=== PATIENT | male | born 1980 | race African-American/Black ===

== ENCOUNTER 2022-08-07 18:17 | Emergency (ER) | payer MEDICARE, MEDICAID ==
[~2022-08-07] VITALS: Ht 185.4 cm; Wt 136.0 kg
[2022-08-07] MEDS ORDERED: SODIUM CHLORIDE 0.9% 1,000 ML IV ONE (21:00)
[2022-08-07 21:30] LABS: BASOPHILS % 0.2 % (0.0-2.0); EOSINOPHILS % 1.1 % (0.0-5.0); HEMATOCRIT. 38.2 % (42.0-52.0); HEMOGLOBIN. 12.8 g/dL (14.0-18.0); MEAN CORPUSCULAR HEMOGLOBIN 28.4 pg (28.0-32.0); MEAN CORPUSCULAR VOLUME 84.8 fL (80.0-94.0); MEAN PLATELET VOLUME 8.9 fl (7.4-10.4); MONOCYTES % 11.2 % (2.0-8.0); NEUTROPHILS % 70.5 % (40.0-76.0); PLATELET 269 x1000/uL (130-400); RED CELL DISTRIBUTION WIDTH 13.4 % (11.6-14.6)
[2022-08-07 21:31] LABS: CHLORIDE 103 mEq/L (98-107)
[2022-08-07 21:33] LABS: INR 1.2
[2022-08-07 23:08] VITALS: BP 147/88
== END 2022-08-07 23:39 | disposition home or self-care (01) ==
LOC: ER 18:17
DX: R55 Syncope and collapse (principal); I11.0 Hypertensive heart disease with heart failure; I50.9 Heart failure, unspecified; E11.9 Type 2 diabetes mellitus without complications; Z86.73 Personal history of transient ischemic attack (TIA), and cerebral infarction without residual deficits
CPT/HCPCS: 36415; 71045; 80053; 84484; 85025; 85610; 93005; 96360; 99285; J7030

== ENCOUNTER 2022-08-17 11:55 | Inpatient (IN) | payer OTHER, MEDICAID ==
[~2022-08-17] VITALS: Ht 185.4 cm; Wt 151.0 kg
[2022-08-17] MEDS ORDERED: SODIUM CHLORIDE 0.9% 1000ML BAG (SEPSIS BOLUS) IV ONE (13:00)
[2022-08-17] MEDS ORDERED: VANCOMYCIN 1G PREMIX 200 ML IV ONE (13:15)
[2022-08-17] MEDS ORDERED: PIPERACILLIN/TAZ 3.375G PREMIX 50 ML IV ONE (13:15)
[2022-08-17 13:55] LABS: BASOPHILS % 0.4 % (0.0-2.0); EOSINOPHILS % 2.3 % (0.0-5.0); HEMATOCRIT. 45.7 % (42.0-52.0); HEMOGLOBIN. 14.6 g/dL (14.0-18.0); LYMPHOCYTES % 28.2 % (20.0-50.0); MEAN CORPUSCULAR HEMOGLOBIN 27.3 pg (28.0-32.0); MEAN CORPUSCULAR VOLUME 85.4 fL (80.0-94.0); MEAN PLATELET VOLUME 9.1 fl (7.4-10.4); MONOCYTES % 12.6 % (2.0-8.0); NEUTROPHILS % 56.5 % (40.0-76.0); PLATELET 412 x1000/uL (130-400); RED BLOOD CELL COUNT 5.36 mill/uL (4.7-6.1)
[2022-08-17 13:56] LABS: CHLORIDE 106 mEq/L (98-107)
[2022-08-17 15:25] LABS: CLARITY URINE CLEAR (CLEAR); COLOR URINE YELLOW (YELLOW); KETONES URINE NEGATIVE (NEGATIVE); LEUKOCYTE ESTERASE URINE NEGATIVE (NEGATIVE); NITRITE URINE NEGATIVE (NEGATIVE); OCCULT BLOOD URINE NEGATIVE (NEGATIVE); PH URINE 5.5 (4.5-8.0); PROTEIN URINE TRACE (NEGATIVE); SPECIFIC GRAVITY URINE 1.016 (1.005-1.030); UROBILINOGEN URINE 0.2 E.U./dL (0.2-1.0)
[2022-08-17] MEDS ORDERED: PIPERACILLIN/TAZ 3.375G PREMIX 50 ML IV NR (16:00)
[2022-08-18] MEDS ORDERED: HYDROCODONE/ACETAMINOPHEN 5/325MG TABLET PO PRN (01:00)
[2022-08-18] MEDS ORDERED: CEFTRIAXONE 1 G PREMIX 50 ML IV SCH (01:00)
[2022-08-18] MEDS ORDERED: DEXTROSE 50% WATER 50ML SYRINGE IV PRN (01:15)
[2022-08-18 01:25] VITALS: BP 116/74
[2022-08-18] MEDS: CEFTRIAXONE 1,000 MG in DEXTROSE 5% WATER 50 ML IV SCH (02:58)
[2022-08-18] MEDS ORDERED: VANCOMYCIN 1.25GM PMX (XELLIA) 250 ML IV SCH (03:00)
[2022-08-18 04:00] VITALS: BP 119/76
[2022-08-18] MEDS: VANCOMYCIN 1.25GM PMX (XELLIA) 250 ML IV SCH ×3 (06:24→20:55)
[2022-08-18] MEDS: BLOOD SUGAR DIAGNOSTIC STRIP TEST SCH ×4 (06:49→20:55)
[2022-08-18] MEDS: INSULIN LISPRO 100 UNITS/ML SUBCUT SCH ×4 (06:49→20:54)
[2022-08-18 08:00] VITALS: BP 122/64
[2022-08-18] MEDS: ENOXAPARIN 40MG/0.4ML SYR SUBCUT SCH ×2 (09:01→20:52)
[2022-08-18 12:00] VITALS: BP 116/81
[2022-08-18] MEDS ORDERED: RIVA20TA MT (13:53)
[2022-08-18] MEDS ORDERED: SACU1TAB7 MT (13:53)
[2022-08-18] MEDS ORDERED: FURO40TA5 MT (13:53)
[2022-08-18] MEDS ORDERED: POTA10CA42 MT (13:53)
[2022-08-18] MEDS ORDERED: ERGO1250 PO (13:53)
[2022-08-18] MEDS ORDERED: CARV25TA47 MT (13:53)
[2022-08-18] MEDS ORDERED: GLIP10TA10 MT (13:53)
[2022-08-18] MEDS ORDERED: ATOR40TA70 MT (13:53)
[2022-08-18] MEDS ORDERED: ALLO300T2 MT (13:53)
[2022-08-18 16:00] VITALS: BP 133/89
[2022-08-18 18:29] LABS: BASOPHILS % 0.5 % (0.0-2.0); EOSINOPHILS % 3.4 % (0.0-5.0); LYMPHOCYTES % 38.2 % (20.0-50.0); MEAN CORPUSCULAR HEMOGLOBIN 27.4 pg (28.0-32.0); MEAN CORPUSCULAR VOLUME 84.3 fL (80.0-94.0); MEAN PLATELET VOLUME 8.8 fl (7.4-10.4); MONOCYTES % 11.3 % (2.0-8.0); NEUTROPHILS % 46.6 % (40.0-76.0); PLATELET 351 x1000/uL (130-400); RED BLOOD CELL COUNT 4.75 mill/uL (4.7-6.1); RED CELL DISTRIBUTION WIDTH 13.9 % (11.6-14.6)
[2022-08-18 18:57] LABS: CHLORIDE 109 mEq/L (98-107)
[2022-08-18 20:00] VITALS: BP 107/67
[2022-08-18] MEDS ORDERED: NALOXONE HCL 0.4MG/ML VIAL IV PRN (21:45)
[2022-08-19] VITALS: BP 110/72
[2022-08-19 04:00] VITALS: BP 125/83
[2022-08-19] MEDS: CEFTRIAXONE 1,000 MG in DEXTROSE 5% WATER 50 ML IV SCH (04:06)
[2022-08-19 06:10] LABS: BASOPHILS % 0.5 % (0.0-2.0); EOSINOPHILS % 3.5 % (0.0-5.0); HEMATOCRIT. 38.2 % (42.0-52.0); HEMOGLOBIN. 12.5 g/dL (14.0-18.0); LYMPHOCYTES % 39.8 % (20.0-50.0); MEAN CORPUSCULAR HEMOGLOBIN 27.9 pg (28.0-32.0); MEAN CORPUSCULAR VOLUME 85.1 fL (80.0-94.0); MEAN PLATELET VOLUME 8.9 fl (7.4-10.4); MONOCYTES % 11.9 % (2.0-8.0); NEUTROPHILS % 44.3 % (40.0-76.0); PLATELET 354 x1000/uL (130-400); RED BLOOD CELL COUNT 4.48 mill/uL (4.7-6.1)
[2022-08-19] MEDS: VANCOMYCIN 1.25GM PMX (XELLIA) 250 ML IV SCH ×3 (06:26→21:51)
[2022-08-19 06:44] LABS: CHLORIDE 106 mEq/L (98-107)
[2022-08-19 07:01] LABS: HEPATITIS B SURFACE ANTIGEN NEGATIVE
[2022-08-19] MEDS: BLOOD SUGAR DIAGNOSTIC STRIP TEST SCH ×4 (07:14→21:00)
[2022-08-19] MEDS: INSULIN LISPRO 100 UNITS/ML SUBCUT SCH ×4 (07:50→22:04)
[2022-08-19 08:00] VITALS: BP 153/93
[2022-08-19 08:09] LABS: VANCOMYCIN TROUGH 17.8 ug/mL (5.0-10.0)
[2022-08-19] MEDS: ENOXAPARIN 40MG/0.4ML SYR SUBCUT SCH ×2 (10:32→21:58)
[2022-08-19 12:00] VITALS: BP 132/83
[2022-08-19] MEDS: PIPERACILLIN/TAZOBACTAM 3.375 G in DEXTROSE 5% WATER 50 ML IV SCH ×2 (13:00→21:58)
[2022-08-19] MEDS ORDERED: PIPERACILLIN/TAZOBACTAM 3.375 G in DEXTROSE 5% WATER 50 ML IV SCH (14:00)
[2022-08-19] MEDS ORDERED: LIDOCAINE HCL 1% 10 MG/ML 10ML VIAL ONE (15:13)
[2022-08-19] MEDS ORDERED: BUPIVACAINE HCL/PF 0.5% (5MG/ML) 10ML ONE (15:14)
[2022-08-19 16:00] VITALS: BP 140/92
[2022-08-19 16:00] LABS: *AMPHETAMINES SCREEN URINE NEGATIVE (NEGATIVE); *BARBITURATES SCREEN URINE NEGATIVE (NEGATIVE); *BENZODIAZEPINES SCREEN URINE NEGATIVE (NEGATIVE); *COCAINE SCREEN URINE NEGATIVE (NEGATIVE); CANNABINOID URINE SCREEN NEGATIVE (NEGATIVE); METHADONE URINE SCREEN NEGATIVE (NEGATIVE); OPIATES URINE SCREEN NEGATIVE (NEGATIVE); PHENCYCLIDINE URINE SCREEN NEGATIVE (NEGATIVE)
[2022-08-19] MEDS: OXYCODONE HCL/ACETAMINOPHEN 5/325MG TABLET PO PRN (16:14)
[2022-08-19] MEDS ORDERED: NALOXONE HCL 0.4MG/ML VIAL IV PRN (16:15)
[2022-08-19 20:00] VITALS: BP 141/93
[2022-08-20] VITALS: BP 113/67
[2022-08-20 04:00] VITALS: BP 113/67
[2022-08-20] MEDS: VANCOMYCIN 1.25GM PMX (XELLIA) 250 ML IV SCH ×3 (05:09→21:09)
[2022-08-20] MEDS: BLOOD SUGAR DIAGNOSTIC STRIP TEST SCH ×4 (06:48→21:07)
[2022-08-20 08:00] VITALS: BP 121/86
[2022-08-20] MEDS: ENOXAPARIN 40MG/0.4ML SYR SUBCUT SCH ×2 (09:01→21:00)
[2022-08-20] MEDS: PIPERACILLIN/TAZOBACTAM 3.375 G in DEXTROSE 5% WATER 50 ML IV SCH ×3 (09:01→21:08)
[2022-08-20] MEDS: INSULIN LISPRO 100 UNITS/ML SUBCUT SCH ×4 (09:01→21:07)
[2022-08-20 12:00] VITALS: BP 112/74
[2022-08-20] MEDS: OXYCODONE HCL/ACETAMINOPHEN 5/325MG TABLET PO PRN (13:46)
[2022-08-20 16:00] VITALS: BP 118/75
[2022-08-20] MEDS ORDERED: INSULIN GLARGINE 100 UNITS/ML SUBCUT NR (16:30)
[2022-08-20] MEDS: ACETAMINOPHEN 325MG TABLET PO PRN (18:18)
[2022-08-20 20:00] VITALS: BP 131/83
[2022-08-20] MEDS: INSULIN GLARGINE 100 UNITS/ML SUBCUT SCH (23:12)
[2022-08-21] VITALS: BP 137/79
[2022-08-21 04:00] VITALS: BP 125/75
[2022-08-21] MEDS: PIPERACILLIN/TAZOBACTAM 3.375 G in DEXTROSE 5% WATER 50 ML IV SCH (05:46)
[2022-08-21] MEDS: VANCOMYCIN 1.25GM PMX (XELLIA) 250 ML IV SCH (05:46)
[2022-08-21] MEDS: BLOOD SUGAR DIAGNOSTIC STRIP TEST SCH ×2 (06:41→12:43)
[2022-08-21 08:00] VITALS: BP 137/63
[2022-08-21 08:26] LABS: CHLORIDE 110 mEq/L (98-107)
[2022-08-21] MEDS: INSULIN LISPRO 100 UNITS/ML SUBCUT SCH ×2 (08:59→13:53)
[2022-08-21] MEDS: ACETAMINOPHEN 325MG TABLET PO PRN (09:07)
[2022-08-21] MEDS: ENOXAPARIN 40MG/0.4ML SYR SUBCUT SCH (10:58)
[2022-08-21] MEDS: INSULIN GLARGINE 100 UNITS/ML SUBCUT SCH (10:58)
[2022-08-21 12:00] VITALS: BP 142/90
[2022-08-21] MEDS ORDERED: INSU100I28 SQ (12:47)
[2022-08-21 14:21] VITALS: BP 142/90
== END 2022-08-21 16:28 | disposition home or self-care (01) | DRG 637 ==
LOC: ER 11:55 → EDBEDREQTM 14:57 → EDBEDREQSVC 14:57 → EDBEDREQ 14:57 → EDBEDREQTM 17:19 → ENRESERV 19:56 → 6WST 19:57
PROVIDERS: ADMIT Internal Medicine; ATTEND Internal Medicine
PROC: 0Y9N0ZZ Drainage of Left Foot, Open Approach (ICD-10-PCS; principal; 2022-08-19)
PROC: 02HV33Z Insertion of Infusion Device into Superior Vena Cava, Percutaneous Approach (ICD-10-PCS; 2022-08-21)
PROC: B548ZZA Ultrasonography of Superior Vena Cava, Guidance (ICD-10-PCS; 2022-08-21)
DX: E11.69 Type 2 diabetes mellitus with other specified complication (principal); A48.0 Gas gangrene; E11.52 Type 2 diabetes mellitus with diabetic peripheral angiopathy with gangrene; L02.612 Cutaneous abscess of left foot; M86.8X7 Other osteomyelitis, ankle and foot; Z68.41 Body mass index [BMI] 40.0-44.9, adult; S90.822A Blister (nonthermal), left foot, initial encounter; X58.XXXA Exposure to other specified factors, initial encounter; E11.621 Type 2 diabetes mellitus with foot ulcer; E11.42 Type 2 diabetes mellitus with diabetic polyneuropathy; I11.0 Hypertensive heart disease with heart failure; I50.9 Heart failure, unspecified; E66.01 Morbid (severe) obesity due to excess calories; R23.0 Cyanosis; L97.529 Non-pressure chronic ulcer of other part of left foot with unspecified severity; Z79.01 Long term (current) use of anticoagulants; Z79.4 Long term (current) use of insulin; Z79.899 Other long term (current) drug therapy; Z86.73 Personal history of transient ischemic attack (TIA), and cerebral infarction without residual deficits; Y93.89 Activity, other specified; Y92.89 Other specified places as the place of occurrence of the external cause; Y99.8 Other external cause status
CPT/HCPCS: 36415; 36573; 71045; 73630; 73700; 80048; 80053; 80061; 80202; 80305; 81003; 82962; 83036; 83605; 84145; 85025; 85651; 86705; 86709; 86803; 87070; 87075; 87077; 87186; 87340; 93005; 93923; 97022; 97162; 97530; 99285; C1725; C1769; J0696; J1650; J1815; J2543; J3370; J3490; J7030; J7060